=== PATIENT | male | born 1955 | race Caucasian/White ===

== ENCOUNTER 2018-02-06 07:24 | Day surgery (SDC) | payer OTHER ==
[~2018-02-06 07:24] MED LIST: ACETAMINOPHEN 325 MG TAB PO; MIDAZOLAM INJ 2 MG/2 ML VIAL (J2250) As Ordered; PHENYLEPHRINE HCL 10 % OPHTH. SOL 5ML OD; PROPARACAINE 0.5% OPHTH SOL 15ML OD
[2018-02-06] MEDS: OFLOXACIN 0.3 % (OCUFLOX) OPTH SOL 5ML OD (08:47)
[2018-02-06] MEDS: TROPICAMIDE 1% OPHTH SOLN 2ML OD (08:47)
[2018-02-06] MEDS: CYCLOPENTOLATE 2% OPHTH SOLN 2ML BTL OD (08:47)
[2018-02-06] MEDS: PHENYLEPHRINE 2.5% OPHTH SOL 2ML OD (08:48)
[2018-02-06] MEDS: LIDOCAINE 3.5 % 1ML OPHTH TOPICAL GEL OU (08:48)
[2018-02-06] MEDS: POVIDONE-IODINE 5% OPHTH PREP SOL 30ML As Ordered (09:43)
[2018-02-06] MEDS ORDERED: fentaNYL 100 MCG/2 ML INJECTION (J3010) As Ordered (09:44)
[2018-02-06] MEDS: LIDOCAINE 1% SDV 5 ML VIAL As Ordered (09:47)
[2018-02-06] MEDS: BALANCED SALT IRRIGATION SOLUTION 500ML BAG (FOR OR EYE MACHINE) As Ordered (09:49)
[2018-02-06] MEDS: CEFUROXIME 1MG/0.1ML INTRACAMERAL INJ As Ordered (09:54)
[2018-02-06] MEDS: HEALON DUET (HEALON 10MG/ML 0.55ML & HEALON ENDOCOAT 30MG/ML 0.85ML) As Ordered (09:54)
[2018-02-06] MEDS ORDERED: hydrALAZINE INJ 20 MG/ML VIAL As Ordered (09:56)
[2018-02-06] MEDS: KETOROLAC 0.5% OPHTH SOLN OD (10:15)
[2018-02-06] MEDS ORDERED: AcetaZOLAMIDE 500 MG ER CAP As Ordered (10:15)
[2018-02-06] MEDS ORDERED: ONDANSETRON 4MG/2ML VIAL (J2405) IV (10:15)
[2018-02-06] MEDS ORDERED: TRIMETHOBENZAMIDE 300 MG CAP PO (10:15)
[2018-02-06] MEDS: AcetaZOLAMIDE 500 MG ER CAP PO (10:18)
== END 2018-02-06 10:32 | disposition home or self-care (01) ==
LOC: M SDC 07:24
DX: H25.11 Age-related nuclear cataract, right eye (principal); I10 Essential (primary) hypertension; Z79.899 Other long term (current) drug therapy
CPT/HCPCS: 66984

== ENCOUNTER 2018-02-27 08:59 | Day surgery (SDC) | payer OTHER ==
[2018-02-27] MEDS: ACETYLCHOLINE OPHTH SOLN 1% 2ML (MIOCHOL-E) As Ordered (06:40)
[~2018-02-27 08:59] MED LIST changes: -MIDAZOLAM INJ 2 MG/2 ML VIAL (J2250) As Ordered; -PHENYLEPHRINE HCL 10 % OPHTH. SOL 5ML OD; +PHENYLEPHRINE HCL 10 % OPHTH. SOL 5ML OS; -PROPARACAINE 0.5% OPHTH SOL 15ML OD; +PROPARACAINE 0.5% OPHTH SOL 15ML OS
[2018-02-27] MEDS: CYCLOPENTOLATE 2% OPHTH SOLN 2ML BTL OS (09:26)
[2018-02-27] MEDS: PHENYLEPHRINE 2.5% OPHTH SOL 2ML OS (09:26)
[2018-02-27] MEDS: TROPICAMIDE 1% OPHTH SOLN 2ML OS (09:26)
[2018-02-27] MEDS: OFLOXACIN 0.3 % (OCUFLOX) OPTH SOL 5ML OS (09:26)
[2018-02-27] MEDS: LIDOCAINE 3.5 % 1ML OPHTH TOPICAL GEL OU (09:27)
[2018-02-27] MEDS ORDERED: ONDANSETRON 4MG/2ML VIAL (J2405) As Ordered (10:10)
[2018-02-27] MEDS ORDERED: fentaNYL 100 MCG/2 ML INJECTION (J3010) As Ordered (10:10)
[2018-02-27] MEDS ORDERED: MIDAZOLAM INJ 2 MG/2 ML VIAL (J2250) As Ordered (10:10)
[2018-02-27] MEDS: HEALON DUET (HEALON 10MG/ML 0.55ML & HEALON ENDOCOAT 30MG/ML 0.85ML) As Ordered (10:28)
[2018-02-27] MEDS: LIDOCAINE 1% SDV 5 ML VIAL As Ordered (10:28)
[2018-02-27] MEDS: BALANCED SALT IRRIGATION SOLUTION 500ML BAG (FOR OR EYE MACHINE) As Ordered (10:28)
[2018-02-27] MEDS: POVIDONE-IODINE 5% OPHTH PREP SOL 30ML As Ordered (10:28)
[2018-02-27] MEDS: CEFUROXIME 1MG/0.1ML INTRACAMERAL INJ As Ordered (10:28)
[2018-02-27] MEDS ORDERED: AcetaZOLAMIDE 500 MG ER CAP As Ordered (10:53)
[2018-02-27] MEDS: KETOROLAC 0.5% OPHTH SOLN OS (10:55)
[2018-02-27] MEDS: AcetaZOLAMIDE 500 MG ER CAP PO (10:55)
[2018-02-27] MEDS ORDERED: TRIMETHOBENZAMIDE 300 MG CAP PO (11:15)
== END 2018-02-27 11:05 | disposition home or self-care (01) ==
LOC: M SDC 08:59
DX: H25.12 Age-related nuclear cataract, left eye (principal); I10 Essential (primary) hypertension; Z79.899 Other long term (current) drug therapy
CPT/HCPCS: 66984